=== PATIENT | female | born 1950 | race Caucasian/White ===

== ENCOUNTER 2022-04-12 14:43 | Outpatient (CLI) | payer MEDICARE, SELFPAY ==
[2022-04-12 12:41] LABS: Albumin* 4.2 g/dL (3.3-5.0); Chloride* 104 mmol/L (96-114); Potassium* 4.4 mmol/L (3.6-5.1); Sodium* 138 mmol/L (135-149)
[2022-04-12 12:43] LABS: Cholesterol* 168 mg/dL (90-199)
[2022-04-12 12:44] LABS: Alanine Aminotransferase* 58 U/L (4-35); Alkaline Phosphatase* 97 U/L (40-150); Aspartate Amino Transferase* 62 U/L (12-35); Bilirubin Total* 1.1 mg/dL (0.1-1.5); Blood Urea Nitrogen* 22 mg/dL (7-30); Calcium* 9.2 mg/dL (8.4-10.6); Carbon Dioxide* 25 mmol/L (20-32); Creatinine* 0.5 mg/dL (0.5-1.5); Estimated Glomerular Filt Rate 99 ml/min; Glucose* 82 mg/dL (60-115); Triglycerides* 62 mg/dL (40-149)
[2022-04-12 12:45] LABS: HDL Cholesterol* 76 mg/dL (>=50); LDL Cholesterol Calculated 80 mg/dL (<100)
== END 2022-04-12 14:44 | disposition home or self-care (01) ==
PROVIDERS: PCP Family Medicine; Visit Provider Family Medicine
DX: E78.5 Hyperlipidemia, unspecified (principal); E78.00 Pure hypercholesterolemia, unspecified
CPT/HCPCS: 80053; 80061

== ENCOUNTER 2022-05-03 08:53 | Outpatient (CLI) | payer MEDICARE, SELFPAY ==
--- NOTE | 2022-05-03 08:45 | CRLHL7_ITS ---
For Patients: As a result of the Century Cures Act, medical imaging exams and procedure reports are released immediately into your electronic medical record. You may view this report before your referring provider. If you have questions, please contact your health care provider. INDICATION: ELEVATED LFTS COMPARISON: none TECHNIQUE: Real time pereira scale imaging and color Doppler analysis was performed of the right upper quadrant. FINDINGS: The patient`s liver is of normal size and has uniform echogenicity. There is a normal appearance of the hepatic IVC and proximal abdominal aorta. There is no evidence of ascites. The gallbladder is of normal size and there is the suggestion faint debris within the gallbladder. The gallbladder wall measures 2 mm in thickness. The common bile duct is of normal size and measures 2 mm in diameter at the level of the gabriella hepatis. The pancreas appears normal. There is no evidence of a stone or hydronephrosis within the right kidney. The right kidney measures 9.7 cm in length. IMPRESSION: Tiny cholesterol stones, minimal, suggested within the gallbladder lumen. Remainder normal. Dictated by Tomas Samuel MD @ 05/03/2022 11:38:02 AM (Electronically Signed)
--- NOTE | 2022-05-03 08:45 | CRLHL7_ITS ---
For Patients: As a result of the Century Cures Act, medical imaging exams and procedure reports are released immediately into your electronic medical record. You may view this report before your referring provider. If you have questions, please contact your health care provider. INDICATION: Left adnexal fullness COMPARISON: none TECHNIQUE: 2D pereira scale and color Doppler images were acquired of the pelvis using a transabdominal and transvaginal approach. FINDINGS: Sonographic images demonstrate a normal size and smooth outer contour of the uterus. Uterus measures 5.4 cm in length by 2.1 cm in AP diameter by 3.4 cm in transverse dimension. The myometrium has a mildly heterogeneous echotexture. There is a small hypoechoic cyst or leiomyoma within the right anterior uterine myometrium measuring 7 x 8 x 13 millimeters. The endometrial lining measures 3 mm in composite thickness. The ovaries are not visualized due to overlying bowel. There are no suspicious fluid collections within the cul-de-sac. IMPRESSION: Nonvisualization of the ovaries. Small intrauterine cyst or fibroid measuring 1.3 cm within the left anterior uterine myometrium. Endometrial thickness 3 millimeters. Dictated by Tomas Samuel MD @ 05/03/2022 11:41:58 AM (Electronically Signed)
== END 2022-05-03 08:54 | disposition home or self-care (01) ==
LOC: US 08:54
PROVIDERS: PCP Family Medicine; Visit Provider Family Medicine
DX: N94.9 Unspecified condition associated with female genital organs and menstrual cycle; N85.8 Other specified noninflammatory disorders of uterus; R93.89 Abnormal findings on diagnostic imaging of other specified body structures; R79.89 Other specified abnormal findings of blood chemistry
CPT/HCPCS: 76705; 76830; 76856

== ENCOUNTER 2022-05-08 13:39 | Outpatient (CLI) | payer MEDICARE, SELFPAY ==
--- NOTE | 2022-05-08 14:00 | CRLHL7_ITS ---
For Patients: As a result of the Century Cures Act, medical imaging exams and procedure reports are released immediately into your electronic medical record. You may view this report before your referring provider. If you have questions, please contact your health care provider. DXA BONE MINERAL DENSITY STUDY Current height (in): 65.0 Weight (lb): 145.0. Menopause age: 44. Ethnicity: White. 1. Have you had a previous hip or vertebral fracture? No. 2. Have you had any fractures during your adult life which did not result from significant trauma (e.g., auto accident)? No. 3. Did either of your parents have a hip fracture? No. 4. Do you smoke? No. 5. Have you ever taken Glucocorticoids? No. 6. Do you have rheumatoid arthritis? No. 7. Do you have secondary osteoporosis? No. 8. Do you drink 3 or more alcoholic drinks per day? No. 9. Are you being treated for osteoporosis? No. 10. Have you ever taken any of the following medications: Actonel, Evista, Fosamax, Miacalcin, Reclast, Boniva, Forteo, HRT (i.e. estrogen/hormone therapy), Protelos, Prolia, Vitamin D, Calcium, other ??? please specify. ANSWER: Yes, vitamin D, calcium. 11. Do you have any of the following medical conditions: Anorexia or bulimia, asthma or emphysema, end stage renal disease, hyperparathyroidism, any seizure disorders, cancer, inflammatory bowel diseases, hysterectomy, other ??? please specify. ANSWER: Yes, hysterectomy. 12. What was your maximum height (inches)? 66. 13. Do you perform weight bearing exercise regularly? Yes. 14. Do you regularly consume dairy products? No. 15. Do you drink caffeinated beverages? Yes. If female: 16. At what age did your period start? 11. 17. Are you premenopausal? No. 18. How many full term pregnancies have you had? 4. 19. Have you ever missed your period for more than 6 months in a row (not including or menopause)? No. TECHNIQUE: Bone mineral density study was performed using the [employer]. FINDINGS: The results of the study expressed as bone mineral density (BMD) are as follows: Lumbar spine L1 to L4: BMD: 1.141 g/cm2. T-score: 1.0. Z-score: 3.3. Left 33%: BMD: 0.580 g/cm2. T-score: -1.9. Z-score: 0.5. IMPRESSION: Osteopenia. COMPARISON: Compared with scan of 01/21/2019, the bone mineral density has decreased by 0.8 percent at the spine. Tomas Samuel M.D. Diagnostic Radiologist [email or web address] Transcribed: 11:07 am DW/Dictated by: Tomas Samuel MD @ 05/09/2022 9:07:00 AM (Electronically Signed)
== END 2022-05-08 13:40 | disposition home or self-care (01) ==
LOC: RAD 13:39
PROVIDERS: PCP Family Medicine; Visit Provider Family Medicine
DX: M85.88 Other specified disorders of bone density and structure, other site (principal)
CPT/HCPCS: 77080

== ENCOUNTER 2023-07-15 08:28 | Outpatient (CLI) | payer MEDICARE, SELFPAY | END 2023-07-15 08:29 | disposition home or self-care (01) | LOC: NFLDREF 07-17 14:52 | PROVIDERS: PCP Family Medicine; Referring Provider Family Medicine; Visit Provider Family Medicine | DX: E78.00 Pure hypercholesterolemia, unspecified (principal); I10 Essential (primary) hypertension | CPT/HCPCS: 80053; 80061 ==

== ENCOUNTER 2025-01-16 09:29 | Outpatient (CLI) | payer MEDICARE, SELFPAY | END 2025-01-16 09:30 | disposition home or self-care (01) | LOC: NFLDREF 01-20 15:04 | PROVIDERS: PCP Family Medicine; Referring Provider Family Medicine; Visit Provider Physician Assistant | DX: N30.01 Acute cystitis with hematuria (principal) | CPT/HCPCS: 87086 ==